=== PATIENT | male | born 2000 | race American Indian/Alaskan Native ===

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

== ENCOUNTER 2019-12-16 15:25 | Emergency (ER) | payer MEDICAID ==
--- NOTE | 2019-12-16 15:42 | Event Note ---
ED Screening Note Date of service: 12/16/19 Time: 15:40 ED Screening Note: Pt presents for aggressive behavior and outbursts x years hx of autism This initial assessment/diagnostic orders/clinical plan/treatment(s) is/are subject to change based on patients health status, clinical progression and re- assessment by fellow clinical providers in the ED. Further treatment and workup at subsequent clinical providers discretion. Patient/guardian urged not to elope from the ED as their condition may be serious if not clinically assessed and managed. Initial orders include: labs
[2019-12-16 16:34] LABS: Basophils % (Auto) 0.5 % (0.0-1.8); Eosinophils % (Auto) 0.9 % (0.0-4.3); Hematocrit 36.2 % (35.5-45.6); Hemoglobin 12.3 gm/dl (11.8-15.2); Lymphocytes # (Auto) 2.5 K/mm3 (1.2-5.4); Lymphocytes % (Auto) 50.3 % (13.4-35.0); Mean Corpuscular HGB Conc 34 % (32-34); Mean Corpuscular Volume 102 fl (84-94); Monocytes # (Auto) 0.7 K/mm3 (0.0-0.8); Monocytes % (Auto) 13.2 % (0.0-7.3); Platelet Count 298 K/mm3 (140-440); Red Blood Count 3.56 M/mm3 (3.65-5.03); Red Cell Distribution Width 12.7 % (13.2-15.2)
[2019-12-16 16:59] LABS: Alanine Aminotransferase 17 units/L (7-56); Albumin 3.7 g/dL (3.9-5); BUN/Creatinine Ratio 22; Blood Urea Nitrogen 31 mg/dL (9-20); Calcium 9.4 mg/dL (8.4-10.2); Hemolysis Index 7
[2019-12-16] MEDS ORDERED: LORazepam 2 MG/ML VIAL ONE (17:13)
[2019-12-16] MEDS ORDERED: HALOPERIDOL LACTATE 5 MG/1 ML INJ ONE (17:13)
[2019-12-16] MEDS ORDERED: LORazepam 2 MG/ML VIAL IM ONE (17:14)
[2019-12-16] MEDS ORDERED: HALOPERIDOL LACTATE 5 MG/1 ML INJ IM ONE (17:14)
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
[2019-12-16] MEDS ORDERED: ZIPRASIDONE MESYLATE 20 MG VIAL IM ONE ×2 (20:00→20:04)
[2019-12-16] MEDS: clonazePAM 0.5 MG TAB PO SCH (21:00)
[2019-12-16] MEDS: DESMOPRESSIN 0.1 MG TAB PO SCH (23:30)
[2019-12-16] MEDS: QUEtiapine 100 MG TAB PO SCH (23:30)
[2019-12-16] MEDS: DIVALPROEX DR 500 MG TAB PO SCH (23:30)
[2019-12-17] MEDS: clonazePAM 0.5 MG TAB PO SCH ×3 (05:25→21:44)
[2019-12-17] MEDS ORDERED: ZIPRASIDONE MESYLATE 20 MG VIAL IM ONE (08:41)
[2019-12-17] MEDS: DESMOPRESSIN 0.1 MG TAB PO SCH ×2 (13:33→21:45)
[2019-12-17] MEDS: DIVALPROEX DR 500 MG TAB PO SCH ×2 (13:33→21:45)
[2019-12-17] MEDS: QUEtiapine 100 MG TAB PO SCH ×2 (13:33→21:45)
[2019-12-17] MEDS ORDERED: LORazepam 2 MG/ML VIAL IM ONE (20:59)
[2019-12-17] MEDS ORDERED: diphenhydrAMINE 50 MG/ML VIAL IM ONE (20:59)
[2019-12-18] MEDS: DIVALPROEX DR 500 MG TAB PO SCH (12:30)
[2019-12-18] MEDS: DESMOPRESSIN 0.1 MG TAB PO SCH (12:30)
[2019-12-18] MEDS: clonazePAM 0.5 MG TAB PO SCH ×2 (12:30→13:18)
[2019-12-18] MEDS: QUEtiapine 100 MG TAB PO SCH (12:30)
[2019-12-18 14:22] VITALS: BP 107/75
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
== END 2019-12-18 17:21 ==
LOC: EEVIPCON 15:25 → ED 15:25
DX: F84.0 Autistic disorder (principal); F79 Unspecified intellectual disabilities; F91.1 Conduct disorder, childhood-onset type; F90.9 Attention-deficit hyperactivity disorder, unspecified type; Z79.899 Other long term (current) drug therapy; Z91.013 Allergy to seafood
CPT/HCPCS: 36415; 80053; 80164; 82962; 85025; 96372; 99284; J1200; J1630; J2060; J3486; 80320; G0480